=== PATIENT | male | born 1990 | race Caucasian/White ===

== ENCOUNTER 2019-11-04 22:52 | Emergency (ER) | payer SELFPAY ==
--- NOTE | 2019-11-04 23:21 | EDM.PDOC ---
ED HPI GENERAL MEDICAL PROBLEM - General Chief Complaint: Exposure to Heat or Cold Stated Complaint: THINKS HE HAS HEAT STROKE Time Seen by Provider: 11/04/19 23:02 Source of Information: Reports: Patient History Limitations: Reports: No Limitations - History of Present Illness INITIAL COMMENTS - FREE TEXT/NARRATIVE: Mr. Benavides is a very pleasant 28 year old man with no chronic medical problems, on no medications, who now presents to the ED stating that he is concerned that he is suffering from heat stroke. He states that he hiked a total of 24 miles today, between 7 AM and 4 PM, in about 80 degree weather. He states that he ordinarily hikes about 20 miles without difficulty, however, he developed lightheadedness, the feeling of a racing heart, and nausea around 1 PM. He states that he drank about 10 L of water, without electrolytes, today, and only ate a small amount, without relief of his symptoms. Here in the ED, the patient's initial BP is found to be 140/100. His heart rate is normal at 76, and he is afebrile at 36.3 degrees, with an oxygen saturation of 100% on room air. Other than today's symptoms, the patient denies recent fever, chills, sore throat, ear pain, nasal or sinus congestion, cough, dyspnea, chest pain, palpitations, nausea, vomiting, constipation, diarrhea, abdominal pain, urinary symptoms, recent weight gain or weight loss, recent bloody bowel movements or black bowel movements, recent joint aches, headaches, or rashes.. The patient is visiting from [place]. - Related Data Allergies Allergy/AdvReac Type Severity Reaction Status Date / Time No Known Allergies Allergy Verified 11/04/19 23:03 Home Meds: Home Meds . [No Known Home Meds] 11/04/19 [History] Past Medical History - Past Surgical History HEENT Surgical History: Reports: Oral Surgery (wisdom teeth extraction), Tonsillectomy Male Surgical History: Reports: Circumcision Social & Family History - Tobacco Use Smoking Status *Q: Never Smoker Second Hand Smoke Exposure: No - Caffeine Use Caffeine Use: Reports: None - Alcohol Use Alcohol Use History: Yes Alcohol Use Frequency: Socially - Recreational Drug Use Recreational Drug Use: Yes Drug Use in Last 12 Months: No Recreational Drug Type: Reports: Marijuana/Hashish (last smoked 2014) - Living Situation & Occupation Living situation: Reports: Single, Alone Occupation: Unemployed ED ROS GENERAL - Review of Systems Review Of Systems: Comprehensive ROS is negative, except as noted in HPI. ED EXAM, GENERAL - Physical Exam Exam: See Below Exam Limited By: No Limitations General Appearance: Alert, WD/WN, No Apparent Distress Eye Exam: Bilateral Eye: EOMI, Normal Inspection Ears: Normal External Exam, Hearing Grossly Normal Nose: Normal Inspection Throat/Mouth: Normal Inspection, Normal Lips, Normal Teeth, Normal Gums, Normal Oropharynx, Normal Voice, No Airway Compromise Head: Atraumatic, Normocephalic Neck: Normal Inspection, Full Range of Motion Respiratory/Chest: No Respiratory Distress, Lungs Clear, Normal Breath Sounds, No Accessory Muscle Use Cardiovascular: Normal Peripheral Pulses, Regular Rate, Rhythm, No Edema, No Gallop, No JVD, No Murmur, No Rub Peripheral Pulses: 3+: Radial (L), Radial (R) GI/Abdominal: Normal Bowel Sounds, Soft, No Organomegaly, No Distention, No Abnormal Bruit, No Mass, Tender (mild, generalized, non-focal) (Male) Exam: Deferred Rectal (Males) Exam: Deferred Back Exam: Normal Inspection, Full Range of Motion, NT Extremities: Normal Inspection, Normal Range of Motion, No Pedal Edema, Normal Capillary Refill Neurological: Alert, Oriented, Normal Cognition, No Motor/Sensory Deficits Psychiatric: Normal Affect Skin Exam: Warm, Dry, Intact, Normal Color, No Rash Course - Vital Signs Last Recorded V/S: Last Vital Signs Temp 36.3 C 11/04/19 23:00 Pulse 76 11/04/19 23:00 Resp 16 11/04/19 23:00 BP 140/100 H 11/04/19 23:00 Pulse Ox 100 11/04/19 23:00 Orthostatic Blood Pressure [ 169/77 Standing] Orthostatic Blood Pressure [ 122/82 Supine] - Orders/Labs/Meds Orders: Active Orders 24 hr Category Date Time Status Orthostatic Vital Signs [RC] STAT Care 11/04/19 23:06 Active Labs: Laboratory Tests 11/04/19 11/04/19 11/05/19 Range/Units 23:15 23:15 01:40 WBC 9.56 H (4.23-9.07) K/mm3 RBC 4.89 (4.63-6.08) M/mm3 Hgb 14.4 (13.7-17.5) gm/dl Hct 39.8 L (40.1-51.0) % MCV 81.4 (79.0-92.2) fl MCH 29.4 (25.7-32.2) pg MCHC 36.2 H (32.2-35.5) g/dl RDW Std Deviation 37.0 (35.1-43.9) fL Plt Count 261 (163-337) K/mm3 MPV 8.3 L (9.4-12.3) fl Neut % (Auto) 76.3 H (34.0-67.9) % Lymph % (Auto) 14.7 L (21.8-53.1) % Door % (Auto) 7.2 (5.3-12.2) % Eos % (Auto) 1.2 (0.8-7.0) Baso % (Auto) 0.4 (0.1-1.2) % Neut # (Auto) 7.29 H (1.78-5.38) K/mm3 Lymph # (Auto) 1.41 (1.32-3.57) K/mm3 Door # (Auto) 0.69 (0.30-0.82) K/mm3 Eos # (Auto) 0.11 (0.04-0.54) K/mm3 Baso # (Auto) 0.04 (0.01-0.08) K/mm3 Sodium 124 L 124 L (136-145) mEq/L Potassium 2.9 L 3.2 L (3.5-5.1) mEq/L Chloride 86 L 87 L (98-107) mEq/L Carbon Dioxide 25 26 (21-32) mEq/L Anion Gap 15.9 H 14.2 (5-15) BUN 16 15 (7-18) mg/dL Creatinine 0.9 0.8 (0.7-1.3) mg/dL Est Cr Clr Drug Dosing 109.29 122.95 mL/min Estimated GFR (MDRD) > 60 > 60 (>60) mL/min BUN/Creatinine Ratio 17.8 18.8 H (14-18) Glucose 119 H 104 (74-106) mg/dL Calcium 8.9 8.8 (8.5-10.1) mg/dL Magnesium 1.7 L 1.6 L (1.8-2.4) mg/dl Total Bilirubin 1.6 H (0.2-1.0) mg/dL AST 35 (15-37) U/L ALT 29 (16-63) U/L Alkaline Phosphatase 70 (46-116) U/L Total Protein 7.5 (6.4-8.2) g/dl Albumin 4.4 (3.4-5.0) g/dl Globulin 3.1 gm/dL Albumin/Globulin Ratio 1.4 (1-2) 11/05/19 Range/Units 04:55 WBC (4.23-9.07) K/mm3 RBC (4.63-6.08) M/mm3 Hgb (13.7-17.5) gm/dl Hct (40.1-51.0) % MCV (79.0-92.2) fl MCH (25.7-32.2) pg MCHC (32.2-35.5) g/dl RDW Std Deviation (35.1-43.9) fL Plt Count (163-337) K/mm3 MPV (9.4-12.3) fl Neut % (Auto) (34.0-67.9) % Lymph % (Auto) (21.8-53.1) % Door % (Auto) (5.3-12.2) % Eos % (Auto) (0.8-7.0) Baso % (Auto) (0.1-1.2) % Neut # (Auto) (1.78-5.38) K/mm3 Lymph # (Auto) (1.32-3.57) K/mm3 Door # (Auto) (0.30-0.82) K/mm3 Eos # (Auto) (0.04-0.54) K/mm3 Baso # (Auto) (0.01-0.08) K/mm3 Sodium 131 L (136-145) mEq/L Potassium 3.5 (3.5-5.1) mEq/L Chloride 95 L (98-107) mEq/L Carbon Dioxide 27 (21-32) mEq/L Anion Gap 12.5 (5-15) BUN 13 (7-18) mg/dL Creatinine 0.8 (0.7-1.3) mg/dL Est Cr Clr Drug Dosing 122.95 mL/min Estimated GFR (MDRD) > 60 (>60) mL/min BUN/Creatinine Ratio 16.3 (14-18) Glucose 114 H (74-106) mg/dL Calcium 8.5 (8.5-10.1) mg/dL Magnesium 2.0 (1.8-2.4) mg/dl Total Bilirubin (0.2-1.0) mg/dL AST (15-37) U/L ALT (16-63) U/L Alkaline Phosphatase (46-116) U/L Total Protein (6.4-8.2) g/dl Albumin (3.4-5.0) g/dl Globulin gm/dL Albumin/Globulin Ratio (1-2) Meds: Medications Discontinued Medications Generic Name Dose Route Start Last Admin Trade Name Freq PRN Reason Stop Dose Admin Lactated Ringer's 1,000 mls @ 999 mls/hr 11/05/19 00:11 11/05/19 00:30 Ringers, Lactated IV 11/05/19 01:11 999 mls/hr .BOLUS ONE Administration Lactated Ringer's 1,000 mls @ 999 mls/hr 11/05/19 01:32 11/05/19 01:38 Ringers, Lactated IV 11/05/19 02:32 999 mls/hr .BOLUS ONE Administration Magnesium Sulfate 2 gm/ Premix 50 mls @ 25 mls/hr 11/05/19 03:18 11/05/19 03:28 IV 11/05/19 05:17 25 mls/hr ONETIME ONE Administration Metoclopramide HCl 10 mg 11/05/19 01:32 11/05/19 01:38 Reglan IVPUSH 11/05/19 01:33 10 mg ONETIME STA Administration Ondansetron HCl 4 mg 11/05/19 00:23 11/05/19 00:30 Zofran IVPUSH 11/05/19 00:24 4 mg ONETIME ONE Administration Oral Electrolytes 1 each 11/05/19 03:18 11/05/19 03:29 Thermotabs PO 11/05/19 03:19 1 each ONETIME STA Administration Oral Electrolytes 1 each 11/05/19 05:19 11/05/19 05:31 Thermotabs PO 11/05/19 05:20 1 each ONETIME STA Administration Potassium Chloride 40 meq 11/05/19 00:12 11/05/19 00:59 Klor-Con M20 PO 11/05/19 00:13 40 meq ONETIME ONE Administration Potassium Chloride 20 meq 11/05/19 05:20 11/05/19 05:31 Klor-Con M20 PO 11/05/19 05:21 20 meq ONETIME ONE Administration - Re-Assessments/Exams Free Text/Narrative Re-Assessment/Exam: 11/04/19 23:16 As above, the patient developed lightheadedness, rapid palpitations, and nausea around 13:00 this afternoon, after having hiked from about 7:00 in the morning. He still managed to hike until 16:00. He states that he drank about 10 L of water, only, without electrolytes, today. The patient is afebrile, therefore both heat exhaustion and heat stroke are not on the differential. He denies having any muscle cramps. He is not tachycardic, and orthostatics are negative. I am concerned about the possibility of water toxicity. I have ordered a work-up that includes a CBC, CMP, and magnesium level. No IV fluid until I see the results of his electrolytes. 11/05/19 00:12 The patient's CBC is remarkable for a WBC count slightly elevated at 9.56. His Hct is slightly elevated at 39.8, but his Hgb is normal at 14.4, with the remainder of his CBC being unremarkable. His CMP is remarkable for a sodium significantly depressed at 124, with a potassium depressed at 2.9. His anion gap is slightly elevated at 15.9, but his bicarbonate is normal at 25. His blood glucose is slightly elevated at 119. His TBil is elevated at 1.6, with the remainder of his CMP being unremarkable. His magnesium level is slightly depressed at 1.7. Based on the above, I have ordered 1 L of LR and 40 mEq of oral KCl. 11/05/19 00:23 Notified by Tiki ROCKWELL that the patient is nauseated and vomiting. I have ordered 4 mg IV Zofran. 11/05/19 01:33 The patient's first liter of LR has finished infusing. I have ordered a second liter of LR, along with a BMP and repeat magnesium level. I was also notified that the patient is still nauseated, therefore I have ordered 10 mg of IV Reglan. 11/05/19 03:22 The patient's second liter of LR has finished infusing. His repeat BMP is remarkable for a sodium is still depressed at 124, and a potassium depressed, but improved, to 3.2. His magnesium level has decreased to 1.6. Based on the above, I have ordered a 2 g Mg-rider and a single Thermotab salt supplement. 11/05/19 05:21 Repeat BMP is remarkable for a sodium improved to 131, and a potassium now normal at 3.5. His magnesium level is now normal at 2.0. Based on the above, I have ordered a repeat Thermotab salt supplement and 20 mEq of oral KCL. 11/05/19 06:13 The patient states that he is feeling much better. I believe he can safely be discharged home. Departure - Departure Time of Disposition: 06:13 Disposition: Home, Self-Care 01 Condition: Good Clinical Impression: Hyponatremia, Hypokalemia, Hypomagnesemia - Discharge Information *PRESCRIPTION DRUG MONITORING PROGRAM REVIEWED*: Not Applicable *COPY OF PRESCRIPTION DRUG MONITORING REPORT IN PATIENT PONCHO: Not Applicable Referrals: PCP,Not In Area [Ordering Only Provider] - Forms: ED Department Discharge Additional Instructions: You were seen in the emergency room after developing lightheadedness, a racing heart, and nausea, after hiking for many hours. Work-up in the ER included blood work and positional blood pressure checks. Your blood work found your sodium, potassium, and magnesium levels to be low. You were given replacement IV fluid and IV magnesium, along with oral sodium and potassium. Going forward, we recommend that whenever you are replacing fluids, that you replace electrolytes as well. Gatorade or Powerade are best. If any other problems, please do not hesitate to return to the ER. Sepsis Event Note (ED) - Evaluation Sepsis Screening Result: No Definite Risk - Focused Exam Vital Signs: Vital Signs Temp Pulse Resp BP Pulse Ox 11/04/19 23:00 36.3 C 76 16 140/100 H 100 - My Orders Last 24 Hours: My Active Orders 11/04/19 23:06 Orthostatic Vital Signs [RC] STAT - Assessment/Plan Last 24 Hours: My Active Orders 11/04/19 23:06 Orthostatic Vital Signs [RC] STAT
[2019-11-05] MEDS ORDERED: Lactated Ringers 1,000 ML IV ONE ×2 (00:11→01:32)
[2019-11-05] MEDS ORDERED: Potassium Chloride 20 MEQ Tab.ER PO ONE ×2 (00:12→05:20)
[2019-11-05] MEDS ORDERED: Ondansetron 4 MG/2 ML SDV IVPUSH ONE (00:23)
[2019-11-05] MEDS ORDERED: Metoclopramide 10 MG/2 ML SDV IVPUSH STA (01:32)
[2019-11-05] MEDS ORDERED: Sodium Chloride/Potassium Chloride Tab PO STA ×2 (03:18→05:19)
[2019-11-05] MEDS ORDERED: Magnesium Sulfate/Water 2 GM in Premix Bag 1 BAG IV ONE (03:18)
== END 2019-11-05 06:25 | disposition home or self-care (01) ==
LOC: JD.ED 22:52
DX: E87.1 Hypo-osmolality and hyponatremia (principal); E87.6 Hypokalemia; E83.42 Hypomagnesemia
CPT/HCPCS: 36415; 80048; 80053; 83735; 85025; 96361; 96365; 96366; 96375; 99284; A9270; J2405; J2765; J3475; J7120